=== PATIENT | female | born 1970 | race Caucasian/White ===

== ENCOUNTER 2016-10-07 11:37 | Emergency (ER) | payer OTHER ==
[~2016-10-07] VITALS: Ht 162.6 cm; Wt 66.2 kg
[~2016-10-07 11:37] MED LIST: KEFLEX500 MG PO; MOTRIN800 MG PO; PERCOCET 5/31 TABLET PO; PYRIDIUM100 MG PO; ULTRAM50 MG PO
[2016-10-07 13:19] LABS: ADD MIUA? NO; BILIRUBIN NEGATIVE; BLOOD NEGATIVE; COLOR YELLOW ((YELLOW)); GLUCOSE (STRIP) NEGATIVE; KETONES 5; LEUKOCYTES NEGATIVE; NITRITE NEGATIVE; PROTEIN (STRIP) NEGATIVE; SPECIFIC GRAVITY 1.026 (1.000-1.030); UCUL ADDED? NO; UROBILINOGEN 0.2 MG/DL (0.2-1.0)
[2016-10-07] MEDS ORDERED: BACLOFEN10 MG PO (14:32)
[2016-10-07] MEDS ORDERED: LORTAB 5-325 M1 EACH PO (14:32)
[2016-10-07] MEDS ORDERED: PREDNISONE10 MG PO (14:32)
[2016-10-07 14:49] VITALS: BP 146/88
[2016-10-07] MEDS ORDERED: COLACE100 MG PO (14:51)
== END 2016-10-07 14:59 | disposition home or self-care (01) ==
LOC: EME 11:37
PROVIDERS: Nurse Practitioner Family
DX: G89.29 Other chronic pain (principal); M54.42 Lumbago with sciatica, left side; K59.00 Constipation, unspecified; Z88.5 Allergy status to narcotic agent; F17.200 Nicotine dependence, unspecified, uncomplicated
CPT/HCPCS: 74020; 81003; 99281; 99284; J3010; J7512

== ENCOUNTER 2017-06-25 12:21 | Emergency (ER) | payer OTHER ==
[~2017-06-25] VITALS: Ht 162.6 cm; Wt 65.2 kg
[~2017-06-25 12:21] MED LIST changes: +BACLOFEN10 MG PO; +COLACE100 MG PO; +LORTAB 5-325 M1 EACH PO; +PREDNISONE10 MG PO
[2017-06-25 13:08] LABS: HEMATOCRIT 42.7 % (36.0-46.0); HEMOGLOBIN 14.5 G/DL (11.9-15.5); MCV 88.2 FL (83-99); PLATELET COUNT 292 K/uL (156-360); RBC DIS.WIDTH-CV 13.1 % (11.8-14.6); RBC DIS.WIDTH-SD 42.8 % (39-53); RED BLOOD COUNT 4.84 M/uL (3.80-5.20); WHITE BLOOD COUNT 14.4 K/uL (4.1-10.2)
[2017-06-25 13:17] LABS: CHLORIDE 106 mEq/L (99-109); POTASSIUM 4.3 mEq/L (3.7-5.4); SODIUM 137 mEq/L (136-147)
[2017-06-25 13:18] LABS: GLUCOSE 109 mg/dL (70-99)
[2017-06-25 13:22] LABS: CREATININE 0.8 mg/dL (0.6-1.3); GFR ESTIMATE (CALCULATED) > 59 mL/min/
[2017-06-25 13:23] LABS: UREA NITROGEN (BUN) 12 mg/dL (9-23)
[2017-06-25] MEDS ORDERED: VENTOLIN HFA18 GM IH (16:09)
[2017-06-25 16:37] VITALS: BP 121/75
== END 2017-06-25 16:38 | disposition home or self-care (01) ==
LOC: EME 12:21
DX: S00.12XA Contusion of left eyelid and periocular area, initial encounter (principal); J06.9 Acute upper respiratory infection, unspecified; W20.8XXA Other cause of strike by thrown, projected or falling object, initial encounter; F17.200 Nicotine dependence, unspecified, uncomplicated; Z88.5 Allergy status to narcotic agent
CPT/HCPCS: 70486; 71046; 80048; 85027; 94640; 99281; 99285

== ENCOUNTER 2017-12-13 09:09 | Emergency (ER) | payer OTHER ==
[~2017-12-13] VITALS: Ht 162.6 cm; Wt 64.8 kg
[~2017-12-13 09:09] MED LIST changes: +VENTOLIN HFA18 GM IH
[2017-12-13 10:07] LABS: BASOPHIL (%) 0.6 % (0-1); BASOPHIL COUNT 0.1 K/uL (0-0.1); EOSINOPHIL (%) 1.9 % (0-5); EOSINOPHIL COUNT 0.2 K/uL (0-0.3); HEMATOCRIT 39.3 % (36.0-46.0); HEMOGLOBIN 13.3 G/DL (11.9-15.5); IMMATURE GRANULOCYTE (%) 0.1 % (0.0-0.7); LYMPHOCYTE (%) 18.3 % (15-42); LYMPHOCYTE COUNT 1.4 K/uL (1.0-2.8); MCHC 33.8 G/DL (30.0-36.0); MCV 88.7 FL (83-99); MONOCYTE (%) 9.7 % (3-12); MONOCYTE COUNT 0.8 K/uL (0-0.8); NEUTROPHIL (%) 69.4 % (45-76); NEUTROPHIL COUNT 5.4 K/uL (1.8-6.4); PLATELET COUNT 264 K/uL (156-360); RBC DIS.WIDTH-CV 12.9 % (11.8-14.6); RBC DIS.WIDTH-SD 42.1 % (39-53); RED BLOOD COUNT 4.43 M/uL (3.80-5.20); WHITE BLOOD COUNT 7.9 K/uL (4.1-10.2)
[2017-12-13 10:16] LABS: CHLORIDE 105 mEq/L (99-109); INTER. NORMALIZED RATIO 0.9; POTASSIUM 4.5 mEq/L (3.7-5.4); SODIUM 136 mEq/L (136-147)
[2017-12-13 10:18] LABS: D-DIMER ELISA < 150.00 ng/mLDDU (<230); GLUCOSE 95 mg/dL (70-99); PTT 25.1 SEC (25-37)
[2017-12-13 10:21] LABS: CREATININE 0.8 mg/dL (0.6-1.3); GFR ESTIMATE (CALCULATED) > 59 mL/min/
[2017-12-13 10:22] LABS: UREA NITROGEN (BUN) 10 mg/dL (9-23)
[2017-12-13 10:28] LABS: TROP-I INTERPRETATION NEGATIVE; TROPONIN-I < 0.01 ng/mL (0.0-0.30)
[2017-12-13] MEDS ORDERED: PERCOCET 5/31 TABLET PO (11:04)
[2017-12-13 11:25] VITALS: BP 113/79
== END 2017-12-13 11:26 | disposition home or self-care (01) ==
LOC: EME 09:09
PROVIDERS: Emergency Medicine
DX: S20.212A Contusion of left front wall of thorax, initial encounter (principal); Y93.19 Activity, other involving water and watercraft; F17.200 Nicotine dependence, unspecified, uncomplicated; Z88.5 Allergy status to narcotic agent
CPT/HCPCS: 71045; 80048; 84484; 85025; 85379; 85610; 85730; 93005; 99281; 99284